=== PATIENT | male | born 1990 | race Caucasian/White ===

== ENCOUNTER 2017-05-08 10:23 | Emergency (ER) | payer MEDICAID, OTHER ==
[~2017-05-08] VITALS: Ht 180.3 cm; Wt 82.7 kg
[~2017-05-08 10:23] MED LIST: IBUP-1689
[2017-05-08 11:00] VITALS: BP 147/87
[2017-05-08] MEDS ORDERED: LIDOCAINE HCL/PF 1% 2 ML VIAL IM ONE (11:15)
[2017-05-08] MEDS ORDERED: CefTRIAXone SODIUM 1 GM/VIAL IM ONE (11:15)
== END 2017-05-08 12:10 | disposition home or self-care (01) ==
LOC: EMS 10:28
DX: S50.862A Insect bite (nonvenomous) of left forearm, initial encounter (principal); L03.114 Cellulitis of left upper limb; L08.89 Other specified local infections of the skin and subcutaneous tissue; F15.10 Other stimulant abuse, uncomplicated; W57.XXXA Bitten or stung by nonvenomous insect and other nonvenomous arthropods, initial encounter; Y93.89 Activity, other specified; Y92.89 Other specified places as the place of occurrence of the external cause; Y99.9 Unspecified external cause status
CPT/HCPCS: 96372; 99283; J0696; J3490

== ENCOUNTER 2017-08-01 03:18 | Emergency (ER) | payer SELFPAY ==
[~2017-08-01] VITALS: Ht 180.3 cm; Wt 77.3 kg
[2017-08-01 03:22] VITALS: BP 154/80
[2017-08-01 03:58] LABS: APPEARANCE,URINE CLEAR (CLEAR); BILIRUBIN,URINE NEGATIVE (NEGATIVE); GLUCOSE, URINE (UA) NEGATIVE (NEGATIVE); KETONES,URINE NEGATIVE (NEGATIVE); LEUKOCYTE ESTERASE ,URINE SMALL (NEGATIVE); NITRATE,URINE NEGATIVE (NEGATIVE); OCCULT BLOOD,URINE SMALL (NEGATIVE); PROTEIN,URINE TRACE (NEGATIVE); UROBILINOGEN,URINE 0.2 mg/dL (<=1.0)
[2017-08-01 04:22] LABS: BACTERIA,URINE Rare /HPF (None Seen); YEAST,URINE Few /HPF (None Seen)
[2017-08-01] MEDS ORDERED: CefTRIAXone SODIUM 1 GM/VIAL IM ONE (05:00)
[2017-08-01] MEDS ORDERED: AZITHROMYCIN 250 MG TABLET PO ONE (05:00)
== END 2017-08-01 05:31 | disposition home or self-care (01) ==
LOC: EMS 03:19
DX: N45.1 Epididymitis (principal)
CPT/HCPCS: 81001; 87491; 87591; 96372; 99284; J0696

== ENCOUNTER 2018-05-15 13:22 | Emergency (ER) | payer SELFPAY ==
[~2018-05-15] VITALS: Ht 177.8 cm; Wt 86.4 kg
[2018-05-15] MEDS ORDERED: TraMADol HCL 50 MG TABLET PO ONE (14:30)
[2018-05-15 15:48] VITALS: BP 147/85
== END 2018-05-15 16:00 | disposition home or self-care (01) ==
LOC: EMS 13:22
DX: S00.03XA Contusion of scalp, initial encounter (principal); F17.210 Nicotine dependence, cigarettes, uncomplicated; F15.90 Other stimulant use, unspecified, uncomplicated; V17.4XXA Pedal cycle driver injured in collision with fixed or stationary object in traffic accident, initial encounter; Y93.89 Activity, other specified; Y92.89 Other specified places as the place of occurrence of the external cause; Y99.8 Other external cause status
CPT/HCPCS: 70450; 72125; 99406